=== PATIENT | female | born 1945 | race Caucasian/White ===

== ENCOUNTER 2018-12-02 10:18 | Emergency (ER) | payer MEDICARE ==
[2018-12-02 11:42] VITALS: BP 135/93
--- NOTE | 2018-12-02 12:11 | UC ---
Ear Complaint HPI - HPI Summary HPI Summary: has R ear pain for 2-3 days. saw PCP and had ear flushed for wax 2 days ago. pain has been worse since and today pain much worse. R ear feels warm and looks red. is currently taking no meds - History of Current Complaint Chief Complaint: UCEar Stated Complaint: EAR PAIN Time Seen by Provider: 12/02/18 11:48 Hx Obtained From: Patient ?: No Onset/Duration: Gradual Onset Severity Initially: Mild Severity Currently: Severe Pain Intensity: 8 Aggravating Factors: Nothing Alleviating Factors: Nothing Associated Signs/Symptoms: Positive: Hearing Loss. Negative: Discharge - Allergies/Home Medications Allergies/Adverse Reactions: Allergies Allergy/AdvReac Type Severity Reaction Status Date / Time Sulfa (Sulfonamide Allergy Rash Verified 12/02/18 11:43 Antibiotics) Home Medications: Home Medications Ibuprofen TAB* [Advil TAB*] 400 mg PO Q6HR PRN 12/02/18 [History Confirmed 12/02] PMH/Surg Hx/FS Hx/Imm Hx Previously Healthy: Yes - Surgical History Surgical History: None - Family History Known Family History: Positive: Hypertension - Social History Occupation: Retired Lives: With Family Alcohol Use: Weekly Substance Use Type: None Smoking Status (MU): Never Smoked Tobacco Review of Systems All Other Systems Reviewed And Are Negative: Yes Constitutional: Positive: Negative. Negative: Fever, Chills Skin: Positive: Negative. Negative: Rash ENT: Positive: Ear Ache. Negative: Sinus Congestion, Sinus Pain/Tenderness Respiratory: Positive: Negative Cardiovascular: Positive: Negative Neurological: Positive: Negative Psychological: Positive: Negative Is Patient Immunocompromised?: No Physical Exam Triage Information Reviewed: Yes Appearance: Well-Appearing, No Pain Distress, Well-Nourished Vital Signs: Initial Vital Signs Temp 98.3 F 12/02/18 11:37 Pulse 91 12/02/18 11:37 Resp 12 12/02/18 11:37 BP 135/93 12/02/18 11:37 Pulse Ox 98 12/02/18 11:37 Vital Signs Reviewed: Yes Eye Exam: Normal Eyes: Positive: Conjunctiva Clear ENT: Positive: Other - R ear canal erythemic, warm to touch, ear canal is swollen, no drainage. ear painful with manipulated. no mastoid tenderness with percussion Neck exam: Normal Respiratory Exam: Normal Respiratory: Positive: Lungs clear Cardiovascular Exam: Normal Cardiovascular: Positive: RRR Abdominal Exam: Normal Neurological Exam: Normal Psychological Exam: Normal Ear Complaint Course/Dx - Differential Dx/Diagnosis Provider Diagnosis: Otitis externa Discharge ED - Sign-Out/Discharge Documenting (check all that apply): Patient Departure All imaging exams completed and their final reports reviewed: No Studies - Discharge Plan Condition: Stable Disposition: HOME Prescriptions: Ciprofloxacin TAB* [Cipro 500 MG TAB*] 500 mg PO BID #20 tab Patient Education Materials: Otitis Externa (ED) Referrals: Nia Cronin MD [Primary Care Provider] - 2 Days (For recheck) Additional Instructions: start antibiotic and take as directed use over the counter ibuprofen as directed for pain make sure you see your primary provider in 2-3 days for recheck report to ER if pain or symptoms worsen at anytime - Billing Disposition and Condition Condition: STABLE Disposition: Home
== END 2018-12-02 12:25 | disposition home or self-care (01) ==
LOC: UCEAST 10:18
DX: H60.91 Unspecified otitis externa, right ear (principal); Z88.2 Allergy status to sulfonamides
CPT/HCPCS: 99202; G0463